=== PATIENT | male | born 1985 | race Caucasian/White ===

== ENCOUNTER 2024-08-26 13:58 | Emergency (ER) | payer OTHER, SELFPAY ==
--- NOTE | ~2024-08-26 | CT_ITS ---
EXAMINATION: CT abdomen pelvis w con DATE: 08/26/2024 16:38 INDICATION: Abdominal pain TECHNIQUE: Computed tomography (CT) of the abdomen and pelvis was performed with 100 mL Omnipaque-350 intravenous contrast. Automated exposure control and iterative reconstruction technique were employe d. The dose-length product was 365.27 mGy-cm. COMPARISON: 06/10/2009 FINDINGS: Mild dependent atelectasis in the bilateral lower lobes. Chronic small fat-containing posterior right diaphragmatic hernia. Heart size normal. No pericardial or pleural effusion. The gallbladder, spleen , pancreas, bilateral adrenal glands and right kidney are normal. 9 mm left renal cyst. 2.5 cm hypode nse lesion in the liver along the ligamentum teres location typical for focal hepatic steatosis. Mode rate to large amount stool scattered throughout the colon which could be seen with constipation. Smal l bowel and appendix are normal. Small fat-containing right inguinal hernia. Bladder is normal. No fr ee intraperitoneal gas or fluid. No pathologically enlarged abdominal or pelvic lymphadenopathy. Mild thoracolumbar levocurvature with mild lower thoracic spondylosis. IMPRESSION: 1. No acute intra-abdominal/pelvic process. 2. Small fat-containing right inguinal hernia. 3. 2.5 cm hypodense hepatic lesion along the ligamentum teres and classic location for focal hepatic steatosis. The configuration is however somewhat masslike and would recommend further evaluation with pre and postcontrast MRI for more definitive determination. Reviewed, dictated and finalized at location A. IMPRESSION: 1. No acute intra-abdominal/pelvic process. 2. Small fat-containing right inguinal hernia. 3. 2.5 cm hypodense hepatic lesion along the ligamentum teres and classic locat ion for focal hepatic steatosis. The configuration is however somewhat masslike and would recommend further evaluation with pre and postcontrast MRI for more definitive determination.
--- OUTSIDE RECORDS SUMMARY | 2024-08-26 14:02 | XMS_ITS | Continuity of Care Document ---
Author Organization [facility] Address [address] [place] [address] [place] [address] Phone Care Team Providers Care Hardware Test Engineer Name Role Phone Rafa Cope MD Unavailable Unavailable Allergies, Adverse Reactions, Alerts Substance Reaction Status Criticality No Known Allergies Active No Inform ation Medications Medication Instructions Dosage Effective Dates (start - stop) Status Comments Xanax 1 mg tablet take 1 tablet by oral route every 4 - 6 hours as needed 1 MG - Active PRN for anxiet y, avoid driving or operate machines Procedures Procedure Date PREV VISIT, NEW, AGE 18-39 Advance Directives Directive Yes / No Effective Date File Name No Information Encounters Encounter Description Practice Location Reason(s) For Visit Diagnoses Date Provider Providers Copied on Encounter [facility], [address] [place], [place], [id number], [place] tel:[phone] [facility] No Information Anatoliy Craig. [address] [facility] [place], [id number], [place]. tel:[phone] Referring Provider: Rafa Cope, [address] [facility] [place], [id number]. tel:[phone] PREV VISIT, NEW, AGE 18-39 [facility], [address] [place], [id number], [place] tel:[phone] [facility] PHysical (chief complaint) Encntr for general adult medical exam w/o abnormal findings Anatoliy Craig. [address], [facility] [place], [place], [id number], [place]. tel:[phone] Referring Provider: Taylor Varg[address], [place], [place], [id number]. tel:[phone] Family History Family Member Type Diagnosis Age At Onset Mother Problem (finding) Alive and well Brother Problem (finding) Alive and well Father Problem (finding) Alive and well Payers Payer name Insurance type Covered libertarian ID Authoriza tion(s) No Information Social History Type Description Quantity Date Captured Comments Alcohol Use Details Unknown Caffeine Use Details Unknown Tobacco Use Status Smoking Status No Information Sex Male Chief Complaint And Reason For Visit No Information Plan Of Treatment Date Type Action Status Goal Special diet education compl eted Goal Tobacco cessation counseling completed Referral Referred To: Kwesi Chaves MD [address] [place], [place], [id number] Ordered: Referrals: Kwesi Chaves MD Evaluate and treat ordered History Of Present Illness Encounter Date Complaint History Of Prese nt Illness PHysical Pt needs annual physical. Pt has chronic anxiety without depression. Pt is taking xanax TID PRN. Pt states that he tried lexapro which did not work. Pt actually got some ativan from urgent care recently and he tried to ask his pervious MD for xanax but was put on lexapro initially which did not work so he went back and did get some xanax and he was told to see a psychiatrist. Pt states that he only takes xanax PRn for anxiety. Pt denies any suicidal or homicidal thought. Pt is not taking the seroquel now since not working. Pt has umbilical hernia for 45 days. Pt c/o pain for 30 days. Pt denies any nausea, vomiting ,constipation, diarrhea. Pt denies any abdominal injury. Pt fell by accident and fell on left elbow and he told me he dislocated his left shoulder int he process. Pt was able to relocate his left shoulder into socket. Pt c/o mild pain with resting which gets worse with movement. Pt denies any instability of left shoulder. Pt denies any radiation of pain down to left arm. Pt denies any tingling pt denies any left hand weakness. Instructions Date Instruction Additional Infor mation Special diet education Related t o Body mass index (BMI) 29.0-29.9, adult Assessments Type Assessment Date No Information
--- OUTSIDE RECORDS SUMMARY | 2024-08-26 14:02 | XMS_ITS | CONTINUITY OF CARE DOCUMENT ---
Author Name [facility] Address Unknown Organization [facility] Address [address] [place] [address] Phone [phone] Care Team Providers Care Digital Solution Architect Name Role Phone Jake Jimenes MD Unavailable DENNY OLIVER MD Unavailable [phone] DENNY OLIVER MD Unavailable PROBLEMS Condition Status Date Provider Notes Premature ventricular contractions active Dary Jimenes MD Palpitations active Jake Jimenes MD Cardiology examination active Jake Jimenes MD Preoperative cardiovascular examination active Jake Jimenes MD Chest pain active Jake Jimenes MD Near syncope active Jake Jimenes MD Shortness of breath active Jake Jimenes MD Anxiety active Jake Jimenes MD (History of) Tobacco abuse active Jake Jimenes MD G E R D active Jake Jimenes MD ENCOUNTERS Date Type Provider Location Encounter Diag nosis - In-person encounter Office Visit Ana Collins MD [facility] - In-person encounter Office Visit Jake Jimenes MD [facility] - In-person encounter Office Visit Jake Jimenes MD [facility] Cardiology examinationPreoperative cardiovascular examinationChest painNear syncopeShortness of breathAnxietyTobacco abuseG E R D VITAL SIGNS Date Observation Value Provider Body Mass Index (Ratio) 31.79 kg/m2 Herber Collins MD blood pressure, cuff size regular Ke rri Gruenenfelder blood pressure, diastolic 80 mm[Hg] Ke rri Gruenenfelder blood pressure, systolic 122 mm[Hg] Codi ri Rema oxygen saturation, oximetry 95 % Lorena Rema respiratory rate E&M 12 /min [facility]na [facility] pulse rate 83 /min Lorena Chad er weight E&M 197 [lb_av] Lorena Claye lder height E&M 66 [in_i] Lorena Regnfe er Body Mass Index (Ratio) 33.08 kg/m2 Hong Jimenes MD pulse rate 90 /min Fady blood pressure, cuff size regular Ja et blood pressure, diastolic 87 mm[Hg] Geoff rret blood pressure, systolic 111 mm[Hg] Jar ret respiratory rate E&M 16 /min oxygen saturation, oximetry 96 % weight E&M 205 [lb_av] Fady y height E&M 66 [in_i] Fady y Body Mass Index (Ratio) 32.92 kg/m2 [address] weight E&M 204 [lb_av] Yoly Rushin g height E&M 66 [in_i] Yoly Rushin g blood pressure, diastolic 85 mm[Hg] Seema nkLogic blood pressure, systolic 122 mm[Hg] Myrna kLogic blood pressure, cuff size regular [facility] blood pressure, diastolic 85 mm[Hg] Geoff [facility] blood pressure, systolic 122 mm[Hg] [facility] pulse rate 64 /min [facility] y height E&M 66 [in_i] Fady y oxygen saturation, oximetry 97 % Fady respiratory rate E&M 16 /min Fady weight E&M 204 [lb_av] Fady ALLERGIES No Known Drug Allergies REASON FOR REFERRAL Date Service frequent pvc's on mo nitor with a lot of symptoms [Description: Dr. Collins] HISTORY OF MEDICATION USE Medication Status Instructions Dates Provider Indications Com ments losartan 50 mg tablet active TAKE 1 TABLET BY MOUTH EVERY DAY Flaco Doss magnesium oxide 400 mg magnesium tablet active Take 1 tablet by mouth twice a day Flaco Doss sulfamethoxazole -trimethoprim 800-160 mg tablet active Conner Starks NP oxycodone-acetam inophen 5-325 mg tablet active Conner Starks NP omeprazole 20 mg capsule,delayed release(DR/EC) active TAKE 1 CAPSULE BY MOUTH EVERY DAY NEEDED varenicline 0.5 mg (11)- 1 mg (42) tablets,dose pack active FOLLOW PACKAGE DIRECTIONS SOCIAL HISTORY Date Observation Value Provider personal history of marijuana use no Flaco Doss drug use no Flaco Doss alcohol use no Flaco Doss cigarette use yes Flaco Doss smoking status Former smoker Flaco Madrigal i personal history of marijuana use no Conner Starks NP drug use no Conner Starks NP alcohol use no Conner Starks [employer] cigarette use yes Conner Starks [employer] smoking status Former smoker Conner alas [employer] cigarette use yes Fady Sinclair ay smoking status Current some day smoker Geoff calle INSURANCE PROVIDERS Payer name Policy type / Coverage type [employer] party ID [employer] MEDICAID (2) Medicaid [id number] ADVANCE DIRECTIVES Name Date DISCUSSED - NO DECISION MADE TREATMENT PLAN Date Name Performer Electrophysiology:non ischemic, likely due to PVCs Ana Collins MD Electrophysiology:Cu rrently sxs are better, will have him start Mag 400 mg BID and Losartan 50 mg and see if his sxs resolve, will repeat holter in 6 mo and reassess. If PVC burden is not improved or worse will proceed with EP study. O rders: H olter Monitor 48 hr (CPT-48440) 9 9204 MOD 45-59 min ([id number]) Ana Collins MD Electrophysiology:st able currently, attributable to his PVCs H is updated medication list for this problem includes: Losartan 50 Mg Tablet (Losartan) ..... Take 1 tablet by mouth every day Ana Collins MD Electrophysiology:Cu rrently sxs are better, will have him start Mag 400 mg BID and Losartan 50 mg and see if his sxs resolve, will repeat holter in 6 mo and reassess. If PVC burden is not improved or worse will proceed with EP study. O rders: H olter Monitor 48 hr (CPT-98419) 9 9204 MOD 45-59 min ([id number]) Flaco Doss Electrophysiology: C omplete cessation encouraged. Flaco Doss Electrophysiology Flaco Doss Electrophysiology Flaco Doss Electrophysiology:non ischemic, likely due to PVCs Flaco Doss Electrophysiology:st able currently, attributable to his PVCs Flaco Doss Telehealth:Routine stress normal Jake Jimenes MD Telehealth:denies Jake Hollins Telehealth:5% VE noted on monito r Jake Jimenes MD Telehealth:arrange for EP evalua tion. Jake Jimenes MD Cardiology: A typical chest pain. Routine stress 08/2023 was negative for ischemia Conner Starks NP Cardiology: c ontinues to have shortness of breath. Routine stress test normal. Conner Starks NP Cardiology: 2 weeks monitor results pending. Conner Starks NP Cardiology: C omplete cessation encouraged. Conner Starks NP Cardiology: H is updated medication list for this problem includes: Omeprazole 20 Mg Capsule,delayed Release(/ec) (Omeprazole) ..... Take 1 capsule by mouth every day as needed Jake Jimenes MD Cardiology:The Patie nt was reencouraged to stop smoking. P elva is on chantix for tobacco cessation Jake Jimenes MD Cardiology:check echo Jake kimble MD Cardiology:Atypical, patient states that this has been occurring for last 1.5 years, will check a routine stress test, ECG unremarkable. Jake Jimenes MD Cardiology:Check 2 week monitor Jake Jimenes MD Date Name Dr. Collins Holter Monitor 48 hr Complete Echo Stress Routine Monitor - Telemetry (Mobile Cardiac) HISTORY OF PROCEDURES Procedure Date Procedure Name Provider Procedure Notes S tatus EKG Ana Collins MD comp leted EKG Jake Jimenes MD completed
--- OUTSIDE RECORDS SUMMARY | 2024-08-26 14:02 | XMS_ITS | Clinical Summary ---
Author Organization [facility] [employer] Address [address] [place] [address] Care Team Providers Care English Adjunct Faculty Name Role Phone Unavailable Primary Care Provider Unavailabl e Source Comments [facility] [employer],non-owned Affiliates and Associated Physician Practices is amultiple site organization consisting of ambulatory clinics and hospital sitesin [place], [place], [place] and [place]. This disclosure is being madepursuant to the Care Everywhere program and may not contain all information available regarding this patient. Last updated 18.[facility] [employer] Allergies Active Allergy Reactions Criticality Noted Date Comments Hydrocodone-Acetaminophen Headache 03/14/2015 Medications * Be aware that medications may not be up to date on this document. Alwaysverify current medications with the patient. ibuprofen (MOTRIN) 800 MG tablet Take 1 Tab by mouth every 6 hours as needed for Pain. 15 Tab 0 3 Active Additional Information Patient not taking.Reported on 05/20/2019 naproxen (NAPROSYN) 500 MG tablet Take 500 mg by mouth 2 times daily Active cyclobenzaprine (FLEXERIL) 10 MG tablet Take 10 mg by mouth 3 times daily as needed for Muscle Spasms Active meloxicam (MOBIC) 15 MG tablet Take 15 mg by mouth once daily Active Social History Tobacco Use Types Packs/Day Years Used Date Smoking Tobacco: Every Day Cigarettes Smokeless Tobacco: Never Tobacco Cessation:Counseling Given: Yes Alcohol Use Standard Drinks/Week Comments No 0 (1 standard drink = 0.6 oz pur e alcohol) Sex and Gender Information Value Date Recorded Sex Assigned at Male 08/17/2021 6:25 PM CDT Legal Sex Male 10:06 AM CHUCK BONER Gender Identity Male 08/17/2021 6:25 PM CDT Sexual Orientation Straight 08/17/2021 6: 25 PM CDT Last Filed Vital Signs Vital Sign Reading Time Taken Comments Blood Pressure 123/77 05/20/2019 2:09 AM CHUCK BONER Pulse 121 05/20/2019 2:09 AM CHUCK BONER Temperature 37.3 C (99.1 F) 05/20/2019 2:09 AM CHUCK BONER Respiratory Rate 18 05/20/2019 2:09 AM CHUCK BONER Oxygen Saturation 100% 05/20/2019 2:09 AM CHUCK BONER Inhaled Oxygen Concentration - - Weight 79.4 kg (175 lb) 05/20/2019 2:09 AM CHUCK BONER Height 167.6 cm (5' 6 ) 05/20/2019 2:09 AM CHUCK BONER Body Mass Index 28.25 05/20/2019 2:09 AM CHUCK BONER Plan of Treatment Health Maintenance Due Date Last Done Comments LIPID TESTING 1984 HIV SCREENING 1999 HEPATITIS C SCREENING 05/24/2002 DTAP/TDAP/TD VACCINES (1 - Tdap) 2003 HEPATITIS B VACCINE (1 of 3 - 19+ 3-dose series) 2003 COVID-19 VACCINE (1 - 2023-2 5 season) 2024 DEPRESSION SCREENING 05/04/2024 INFLUENZA VACCINE (Season Ended) 2025 ZOSTER VACCINE (1 of 2) 2034 HIB VACCINE Aged Out No longer eligi ble based on patient's age to complete this topic HPV VACCINE Aged Out No longer eligi ble based on patient's age to complete this topic MENINGOCOCCAL (Group B) VACC INE SHARED DECISION-MAKING Aged Out No longer eligibl e based on patient's age to complete this topic MENINGOCOCCAL GROUPS A/C/Y/W VACCINE Aged Out No longer eligible b ased on patient's age to complete this topic PNEUMOCOCCAL VACCINE Aged Out No long er eligible based on patient's age to complete this topic Insurance MEDICAID [facility]
[2024-08-26 14:23] VITALS: BP 117/79; PULSE 98; RESP 16; TEMP 36.1; O2SAT 100
--- NOTE | 2024-08-26 14:24 | ECG_ITS ---
Test Date: 2024-08-26 16:01:08 Measurements Intervals Ramona Rate: 93 P: 50 RI: 141 QRS: 62 QRSD: 87 T: 39 QT: 330 QTc: 411 Interpretive Statements SINUS RHYTHM NORMAL ECG No previous ECG available for comparison Electronically Signed On 08-26-2024 16:16:39 CDT by Humberto Williamson D.O.
--- NOTE | 2024-08-26 14:25 | ED.ABDPAIN ---
HPI - Abdominal Pain General Chief Complaint: Abdominal Pain <Che Garcia APRN - Last Filed: 08/26/24 14:26> Stated Complaint: abd pain <Che Garcia APRN - Last Filed: 08/26/24 14:26> Time Seen by Provider: 08/26/24 14:15 <Che Garcia APRN - Last Filed: 08/26/24 14:26> Focused HPI: Patient is a 47-year-old male who presents to the ER with abdominal pain. He reports he believes ?my appendix is swollen. Patient endorses nausea and diarrhea. He reports his symptoms started approximately 2 days ago and are constant. Patient denies any other medical history relevant to this ER visit. GENERAL: Well-appearing, well-nourished, and in no acute distress. HEAD: Normocephalic, atraumatic. CHEST: Clear to auscultation. ?No respiratory distress. HEART: Regular rate and rhythm.? NEURO: ?Alert and oriented x3. Patient screened in triage and initial orders placed.? ?Additional care and disposition to be based upon?diagnostic testing and treatment. <Che Garcia APRN - Last Filed: 08/26/24 14:26> History of Present Illness HPI narrative: Agree with the HPI above. Patient has had previous inguinal hernia repairs but no history of appendix issues. Was otherwise in his normal state of health. <Anthony Grove MD - Last Filed: 08/26/24 17:59> Related Data Allergies/Adverse Reactions: Allergies Allergy/AdvReac Type Severity Reaction Status Date / Time No Known Allergies Allergy Verified 04/17/18 05:00 <Che Garcia APRN - Last Filed: 08/26/24 14:26> Review of Systems Review of Systems: As reviewed above in HPI <Anthony Grove MD - Last Filed: 08/26/24 17:59> PMFSH Family History Family History: Family History Mother Patient's mother is in good health Father Patient's father is in good health Sibling Patient's brother is in good health <Che L. Jose, LINING FELLER BLINDSTITCH - Last Filed: 08/26/24 14:26> Social History Social History: Social History Smoking status: Current every day smoker Alcohol intake: never <Che Garcia, LINING FELLER BLINDSTITCH - Last Filed: 08/26/24 14:26> Exam Narrative: GENERAL: [Well-appearing, well-nourished, and in no acute distress.] HEAD: [Normocephalic, atraumatic.] EYES: [PERRLA and EOMI.] ENT: Nares clear, no rhinorrhea or epistaxis. Mucous membranes moist. NECK: Supple. CHEST: [Clear to auscultation. No respiratory distress.] HEART: [Regular rate and rhythm]. No murmur heard. [Normal peripheral pulses.] ABDOMEN: [Soft, nondistended], [nontender], [No rigidity or guarding] EXTREMITIES: Normal range of motion. [No edema.] SKIN: Warm, dry, no rash. NEURO: [No focal deficits]. Alert and oriented [x3.] PSYCH: [Normal mood and affect.] <Anthony Grove MD - Last Filed: 08/26/24 17:59> Course Vital Signs Vital signs: Vital Signs Temperature 36.1 C L 08/26/24 14:23 Pulse Rate 98 08/26/24 14:23 Respiratory Rate 16 08/26/24 14:23 Blood Pressure 117/79 08/26/24 14:23 Pulse Oximetry 100 08/26/24 14:23 Oxygen Delivery Room Air 08/26/24 14:23 Temperature 36.9 C 08/26/24 16:07 Pulse Rate 82 08/26/24 17:47 Respiratory Rate 18 08/26/24 17:47 Blood Pressure 114/68 08/26/24 17:47 Pulse Oximetry 98 08/26/24 17:47 Oxygen Delivery Room Air 08/26/24 14:23 <Che Garcia, LINING FELLER BLINDSTITCH - Last Filed: 08/26/24 14:26> Vital Signs Temperature 36.1 C L 08/26/24 14:23 Pulse Rate 98 08/26/24 14:23 Respiratory Rate 16 08/26/24 14:23 Blood Pressure 117/79 08/26/24 14:23 Pulse Oximetry 100 08/26/24 14:23 Oxygen Delivery Room Air 08/26/24 14:23 Temperature 36.9 C 08/26/24 16:07 Pulse Rate 82 08/26/24 17:47 Respiratory Rate 18 08/26/24 17:47 Blood Pressure 114/68 08/26/24 17:47 Pulse Oximetry 98 08/26/24 17:47 Oxygen Delivery Room Air 08/26/24 14:23 <Anthony Grove MD - Last Filed: 08/26/24 17:59> MDM - Abdominal Pain MDM Narrative Medical decision making narrative: 39-year-old male with no significant pertinent past medical history presenting with right lower quadrant pain for last 4-5 days. Endorses feeling gassy and nauseous. No vomiting. Multiple episodes of diarrhea. No history of appendix issues in the past but states he has had hernia issues previously. Has a soft nontender nondistended abdomen. Normal vital signs with any fever, tachycardia. No blood pressure concerns. Suspicion presently is for gastroenteritis, diarrheal illness, possible appendicitis, diverticulitis, gastritis low suspicion Crohn's disease. Possibility of a hernia. CT scan with contrast ordered, laboratory studies to evaluate for CBC, CMP, lipase. Patient did not require any pain medications at this time. Workup shows no leukocytosis or anemia. Normal platelet count. Normal electrolytes, normal renal and hepatic function panel. Negative troponin. Mildly elevated lipase. Urinalysis without signs of infection. CT scan shows no acute abnormalities. There is a small fat containing right inguinal hernia where his pain is. Instantly found hepatic lesion likely hepatic steatosis per radiology's interpretation. Patient was informed about this and will need to follow-up with his primary care provider for more imaging and evaluations. He is safe and stable for discharge home at this time given that he has no present symptoms and normal CT scan otherwise. <Anthony Grove MD - Last Filed: 08/26/24 17:59> Medical Records Attestation: I reviewed the patient's medical records. <Anthony Grove MD - Last Filed: 08/26/24 17:59> Lab Data Attestation: I reviewed the patient's lab results. <Anthony Grove MD - Last Filed: 08/26/24 17:59> Result diagrams: 08/26/24 15:55 08/26/24 15:55 <Che Garcia APRN - Last Filed: 08/26/24 14:26> Labs: Lab Results 08/26/24 08/26/24 Range/Units 15:55 17:38 WBC 9.2 (4.5-10.0) K/mm3 RBC 4.55 L (4.6-6.20) M/mm3 Hgb 13.8 L (14.0-18.0) g/dL Hct 41.5 L (42.0-52.0) % MCV 91.2 (80-100) fl MCH 30.3 (26-34) pg MCHC 33.3 (32-36) g/dl RDW 13.0 (11.5-14.5) % Plt Count 233 (150-375) k/mm3 MPV 8.5 (7.4-10.4) fl Immature Gran % (Auto) 0.4 (0-0.5) % Neut % (Auto) 67.6 (45.5-73.1) % Lymph % (Auto) 22.9 (18.3-44.2) % [place] % (Auto) 6.0 (2.6-8.5) % Eos % (Auto) 2.7 (0-4.4) % Baso % (Auto) 0.4 (0.2-1.2) % Lymph # (Auto) 2.11 (0.9-3.2) K/mm3 [place] # (Auto) 0.6 (0.1-0.6) K/mm3 Eos # (Auto) 0.3 (0-0.3) K/mm3 Baso # (Auto) 0.0 (0.0-0.1) K/mm3 Abs Immat Gran (auto) 0.04 H (0.00-0.031) K/mm3 Absolute Neuts (auto) 6.2 (1.3-6.7) K/mm3 Absolute Nucleated RBC 0.000 (0.0-0.012) K/mm3 Nucleated RBC % 0.0 (0.0-0.2) % Sodium 139 (137-145) mmol/L Potassium 4.0 (3.4-5.0) mmol/L Chloride 106 (98-107) mmol/L Carbon Dioxide 25 (22-30) mmol/L Anion Gap 8 (4-12) mmol/L BUN 19 (9-20) mg/dL Creatinine 0.77 (0.7-1.3) mg/dL Estim Creat Clear Calc 100 ml/min Estimated GFR > 60 (59 - ) Glucose 98 (65-110) mg/dL Calcium 9.1 (8.4-10.2) mg/dL Total Bilirubin 0.4 (0.2-1.3) mg/dL AST 39 (17-59) U/L ALT 66 H (6-50) U/L Alkaline Phosphatase 67 (38-126) U/L Troponin I < 0.012 (0.000-0.034) ng/mL Total Protein 7.0 (6.3-8.2) g/dL Albumin 4.3 (3.5-5.1) g/dL Lipase 585 H (23-300) U/L Urine Color Pending Urine Appearance Pending Urine pH Pending Ur Specific [place] Pending Urine Protein Pending Urine Glucose (UA) Pending Urine Ketones Pending Ur Blood (Man) Pending Urine Nitrate Pending Urine Bilirubin Pending Urine Urobilinogen Pending Leukocyte Esterase Rfl Pending <Che Garcia, LINING FELLER BLINDSTITCH - Last Filed: 08/26/24 14:26> Lab Results 08/26/24 08/26/24 Range/Units 15:55 17:38 WBC 9.2 (4.5-10.0) K/mm3 RBC 4.55 L (4.6-6.20) M/mm3 Hgb 13.8 L (14.0-18.0) g/dL Hct 41.5 L (42.0-52.0) % MCV 91.2 (80-100) fl MCH 30.3 (26-34) pg MCHC 33.3 (32-36) g/dl RDW 13.0 (11.5-14.5) % Plt Count 233 (150-375) k/mm3 MPV 8.5 (7.4-10.4) fl Immature Gran % (Auto) 0.4 (0-0.5) % Neut % (Auto) 67.6 (45.5-73.1) % Lymph % (Auto) 22.9 (18.3-44.2) % [place] % (Auto) 6.0 (2.6-8.5) % Eos % (Auto) 2.7 (0-4.4) % Baso % (Auto) 0.4 (0.2-1.2) % Lymph # (Auto) 2.11 (0.9-3.2) K/mm3 [place] # (Auto) 0.6 (0.1-0.6) K/mm3 Eos # (Auto) 0.3 (0-0.3) K/mm3 Baso # (Auto) 0.0 (0.0-0.1) K/mm3 Abs Immat Gran (auto) 0.04 H (0.00-0.031) K/mm3 Absolute Neuts (auto) 6.2 (1.3-6.7) K/mm3 Absolute Nucleated RBC 0.000 (0.0-0.012) K/mm3 Nucleated RBC % 0.0 (0.0-0.2) % Sodium 139 (137-145) mmol/L Potassium 4.0 (3.4-5.0) mmol/L Chloride 106 (98-107) mmol/L Carbon Dioxide 25 (22-30) mmol/L Anion Gap 8 (4-12) mmol/L BUN 19 (9-20) mg/dL Creatinine 0.77 (0.7-1.3) mg/dL Estim Creat Clear Calc 100 ml/min Estimated GFR > 60 (59 - ) Glucose 98 (65-110) mg/dL Calcium 9.1 (8.4-10.2) mg/dL Total Bilirubin 0.4 (0.2-1.3) mg/dL AST 39 (17-59) U/L ALT 66 H (6-50) U/L Alkaline Phosphatase 67 (38-126) U/L Troponin I < 0.012 (0.000-0.034) ng/mL Total Protein 7.0 (6.3-8.2) g/dL Albumin 4.3 (3.5-5.1) g/dL Lipase 585 H (23-300) U/L Urine Color Pending Urine Appearance Pending Urine pH Pending Ur Specific [place] Pending Urine Protein Pending Urine Glucose (UA) Pending Urine Ketones Pending Ur Blood (Man) Pending Urine Nitrate Pending Urine Bilirubin Pending Urine Urobilinogen Pending Leukocyte Esterase Rfl Pending <Anthony Grove MD - Last Filed: 08/26/24 17:59> Imaging Data Attestation: I personally reviewed and interpreted this imaging study as follows: <Anthony Grove MD - Last Filed: 08/26/24 17:59> My impression: Impressions Abdomen/Pelvis CT 08/26/24 16:43 IMPRESSION: 1. No acute intra-abdominal/pelvic process. 2. Small fat-containing right inguinal hernia. 3. 2.5 cm hypodense hepatic lesion along the ligamentum teres and classic location for focal hepatic steatosis. The configuration is however somewhat masslike and would recommend further evaluation with pre and postcontrast MRI for more definitive determination. <Anthony Grove MD - Last Filed: 08/26/24 17:59> Radiologist's impression: ITS Impressions Abdomen/Pelvis CT 08/26/24 16:43 IMPRESSION: 1. No acute intra-abdominal/pelvic process. 2. Small fat-containing right inguinal hernia. 3. 2.5 cm hypodense hepatic lesion along the ligamentum teres and classic location for focal hepatic steatosis. The configuration is however somewhat masslike and would recommend further evaluation with pre and postcontrast MRI for more definitive determination. <Che Garcia APRN - Last Filed: 08/26/24 14:26> ITS Impressions Abdomen/Pelvis CT 08/26/24 16:43 IMPRESSION: 1. No acute intra-abdominal/pelvic process. 2. Small fat-containing right inguinal hernia. 3. 2.5 cm hypodense hepatic lesion along the ligamentum teres and classic location for focal hepatic steatosis. The configuration is however somewhat masslike and would recommend further evaluation with pre and postcontrast MRI for more definitive determination. <Anthony Grove MD - Last Filed: 08/26/24 17:59> Discharge Plan Discharge Clinical Impression: Inguinal hernia of right side without obstruction or gangrene, Abnormal CT of liver, Abdominal pain, RLQ (right lower quadrant) <Che Garcia APRN - Last Filed: 08/26/24 14:26> Patient Disposition: Home <Che Garcia APRN - Last Filed: 08/26/24 14:26> Condition: Stable <Che Garcia APRN - Last Filed: 08/26/24 14:26> Instructions: Antibiotic Form, Inguinal Hernia (ED), Abdominal Pain (ED) <Che Garcia APRN - Last Filed: 08/26/24 14:26> Additional Instructions: No signs of appendicitis. Your CT scan shows a small fat containing right-sided inguinal hernia which is likely the source of your pain but there is no signs of obstructions or ischemia. Will refer you to a general surgeon to evaluate you for elective repair. Your liver has a CT finding of potential fatty liver and this will need to be evaluated further with additional imaging by her primary care provider but is not causing symptoms at this time. Return with any new or worsening concerns at any time. <Che Garcia APRN - Last Filed: 08/26/24 14:26> Patient Language: Citizen Of [place] <Che Garcia APRN - Last Filed: 08/26/24 14:26> Follow-up/Referrals: Harriet Stevens MD [Physician] - 1 Week (Inguinal hernia) PHYSICIAN,HYDRAULIC JACK OPERATOR [Non-Staff] - <Che Garcia APRN - Last Filed: 08/26/24 14:26> Time of Disposition: 17:58 <Che Garcia APRN - Last Filed: 08/26/24 14:26> 17:58 <Anthony Grove MD - Last Filed: 08/26/24 17:59>
--- OUTSIDE RECORDS SUMMARY | 2024-08-26 14:51 | XMS_ITS | Continuity of Care Document ---
Author Organization [facility] Address [address] [place] [address] [place] [address] Phone Care Team Providers Care Small Parts Shaper Operator Name Role Phone Rafa Cope MD Unavailable [...] Diagnoses Date Provider Providers Copied on Encounter [facility], [address] [place], [place], [id number], [place] tel:[phone] [facility] No Information Anatoliy Craig. [address] [facility] [place], [place], [id number], [place]. tel:[phone] Referring Provider: Rafa Cope, [address] [facility] [place], [place], [id number]. tel:[phone] PREV VISIT, NEW, AGE 18-39 [facility], [address] [place], [place], [id number], [place] tel:[phone] [facility] PHysical (chief complaint) Encntr for general adult medical exam w/o abnormal findings Anatoliy Craig. [address], [facility] [place], [place], [id number], [place]. tel:[phone] Referring Provider: Taylor Vargas [address], [place], [place], [id number]. tel:[phone] Family History Family Member Type Diagnosis Age At Onset Mother Problem (finding) Alive and well Brother Problem (finding) Alive and well Father Problem (finding) Alive and well Payers Payer name Insurance type Covered democrat ID Authoriza tion(s) No Information Social History [...] MD [address] [place], [place], [id number] Ordered: Referrals: Kwesi Chaves MD Evaluate and [...]
--- OUTSIDE RECORDS SUMMARY | 2024-08-26 14:51 | XMS_ITS | CONTINUITY OF CARE DOCUMENT ---
Author Name [facility] Address Unknown Organization [facility] Address [address] [place] [address] Phone [phone] Care Team Providers Care Price Accuracy Supervisor Name Role Phone Jake Jimenes MD Unavailable DENNY OLIVER MD Unavailable DENNY OLIVER MD Unavailable PROBLEMS Condition Status Date Provider Notes Premature ventricular contractions active Dayr Jimenes MD Palpitations active Jake Jimenes MD Cardiology examination active Jake Jimenes MD Shortness of breath active Jake Jimenes MD G E R D active Jake Jimenes MD Tobacco abuse active Jake Jimenes MD Anxiety active Jake Jimenes MD (History of) Near syncope active Jake Jimenes MD Chest pain active Jake Jimenes MD Preoperative cardiovascular examination active Jake Jimenes MD ENCOUNTERS Date Type Provider Location Encounter Diag nosis - In-person encounter Office Visit Ana Collins MD [place] [facility] - In-person encounter Office Visit Jake Jimenes MD [place] [facility] - In-person encounter Office Visit Jake Jimenes MD [place] [facility] Cardiology examinationPreoperative cardiovascular examinationChest painNear syncopeShortness [...] respiratory rate E&M 12 /min [facility] pulse [facility] 83 /min Lorena Chad er [...] Myrna kLogic blood pressure, cuff size regular [facility] blood pressure, diastolic 85 mm[Hg] Geoff [facility] blood pressure, systolic 122 mm[Hg] [facility] pulse rate 64 /min [facility] y height E&M 66 [in_i] Fady y [...] Starks NP alcohol use no Conner Starks WATER FILTER CLEANER cigarette use yes Conner Starks WATER FILTER CLEANER smoking status Former smoker Conner alas WATER FILTER CLEANER cigarette use yes Fady Sinclair ay smoking status Current some day smoker Geoff calle INSURANCE PROVIDERS Payer name Policy type / Coverage type Greg red libertarian [place] MEDICAID (2) Medicaid [id number] ADVANCE DIRECTIVES Name Date DISCUSSED - NO [...] O rders: H olter Monitor 48 hr (CPT-91676) 9 9204 MOD 45-59 min (CPT-10857) Ana Collins MD Electrophysiology:st able currently, attributable [...] O rders: H olter Monitor 48 hr (CPT-95558) 9 9204 MOD 45-59 min (CPT-82158) Flaco Doss Electrophysiology: C omplete cessation encouraged. [...]
--- OUTSIDE RECORDS SUMMARY | 2024-08-26 14:51 | XMS_ITS | Clinical Summary ---
Author Organization [facility] Address [address] [place] [address] Care Team Providers Care Catalyst Recovery Operator Name Role Phone Unavailable Primary Care Provider Unavailabl e Source Comments [facility],non-owned Affiliates and Associated Physician Practices is amultiple site organization consisting of ambulatory clinics and hospital sitesin [place], [place], [place] and [place]. This disclosure is being madepursuant to the Care Everywhere program and may not contain all information available regarding this patient. Last updated 18.[facility] Allergies Active Allergy Reactions Criticality Noted Date [...] PM CDT Legal Sex Male 10:06 AM MACHINE FEEDER FLOORPERSON Gender Identity Male 08/17/2021 6:25 PM CDT Sexual Orientation Straight 08/17/2021 6: 25 PM CDT Last Filed Vital Signs Vital Sign Reading Time Taken Comments Blood Pressure 123/77 05/20/2019 2:09 AM MACHINE FEEDER FLOORPERSON Pulse 121 05/20/2019 2:09 AM MACHINE FEEDER FLOORPERSON Temperature 37.3 C (99.1 F) 05/20/2019 2:09 AM MACHINE FEEDER FLOORPERSON Respiratory Rate 18 05/20/2019 2:09 AM MACHINE FEEDER FLOORPERSON Oxygen Saturation 100% 05/20/2019 2:09 AM MACHINE FEEDER FLOORPERSON Inhaled Oxygen Concentration - - Weight 79.4 kg (175 lb) 05/20/2019 2:09 AM MACHINE FEEDER FLOORPERSON Height 167.6 cm (5' 6 ) 05/20/2019 2:09 AM MACHINE FEEDER FLOORPERSON Body Mass Index 28.25 05/20/2019 2:09 AM MACHINE FEEDER FLOORPERSON Plan of Treatment Health Maintenance Due Date [...] age to complete this topic Insurance MEDICAID [facility]
[2024-08-26 16:00] LABS: Basophils Percent Auto 0.4 % (0.2-1.2); Eosinophils Absolute Auto 0.3 K/mm3 (0-0.3); Eosinophils Percent Auto 2.7 % (0-4.4); Hematocrit 41.5 % (42.0-52.0); Hemoglobin 13.8 g/dL (14.0-18.0); Immature Granulocyte Absolute 0.04 K/mm3 (0.00-0.031); Immature Granulocyte Percent A 0.4 % (0-0.5); Lymphocytes Absolute Auto 2.11 K/mm3 (0.9-3.2); Lymphocytes Percent Auto 22.9 % (18.3-44.2); Mean Corpuscular HGB Conc 33.3 g/dl (32-36); Mean Corpuscular Hemoglobin 30.3 pg (26-34); Mean Corpuscular Volume 91.2 fl (80-100); Mean Platelet Volume 8.5 fl (7.4-10.4); Monocytes Absolute Auto 0.6 K/mm3 (0.1-0.6); Neutrophils Absolute Auto 6.2 K/mm3 (1.3-6.7); Neutrophils Percent Auto 67.6 % (45.5-73.1); Platelet Count Result 233 k/mm3 (150-375); Red Blood Count 4.55 M/mm3 (4.6-6.20); White Blood Count 9.2 K/mm3 (4.5-10.0)
[2024-08-26 16:07] VITALS: BP 114/79; PULSE 92; RESP 18; TEMP 36.9; O2SAT 98
--- NOTE | 2024-08-26 16:08 | PC.NURSE ---
39yo M to ER c/o RLQ abd pain x4-5 days with radiation to low back. +diarrhea and nausea. Denies fevers. Denies GI sx hx. Pt A&Ox4, speech clear. RR even and unlabored. Skin WDL. PIV and blood work obtained, sent to lab. EKG performed. Pt placed on continuous nibp and pulse ox monitor, VS as charted. Pt aware of NPO status. Pt aware of plan of care. Call light in reach.
--- NOTE | 2024-08-26 16:10 | PC.NURSE ---
Pt unable to provide urine sample at this time.
[2024-08-26 16:11] LABS: Alanine Aminotransferase 66 U/L (6-50); Albumin Level 4.3 g/dL (3.5-5.1); Alkaline Phosphatase 67 U/L (38-126); Anion Gap 8 mmol/L (4-12); Aspartate Amino Transferase 39 U/L (17-59); Bilirubin,Total 0.4 mg/dL (0.2-1.3); Blood Urea Nitrogen 19 mg/dL (9-20); Calcium 9.1 mg/dL (8.4-10.2); Carbon Dioxide 25 mmol/L (22-30); Chloride 106 mmol/L (98-107); Estimated CRCL calculation 100 ml/min; Estimated Glomerular Filt Rate > 60; Glucose 98 mg/dL (65-110); Lipase 585 U/L (23-300); Sodium 139 mmol/L (137-145)
[2024-08-26 16:22] LABS: Troponin I < 0.012 ng/mL (0.000-0.034)
--- NOTE | 2024-08-26 17:31 | PC.NURSE ---
Patient ambulatory w steady gait to BR to provide urine sample.
[2024-08-26 17:47] VITALS: BP 114/68; PULSE 82; RESP 18; O2SAT 98
[2024-08-26 17:48] LABS: Add Urine Microscopic? NO; Appearance Urine Clear (Clear); Bilirubin Urine Negative (Negative); Blood Urine Negative (Negative); Color Urine Yellow (Yellow); Glucose Urine UA Negative (Negative); Ketones Urine Negative (Negative); Leukocyte Esterase Ur Negative LEU/UL (Negative); Nitrate Urine Negative (Negative); Protein Urine Negative (Negative); Specific Grav Ur > 1.045 (1.001-1.035); Urobilinogen Urine 0.2 mg/dL (<2.0)
== END 2024-08-26 18:17 | disposition home or self-care (01) ==
PROVIDERS: Registered Nurse; Emergency Provider Student in an Organized Health Care Education/Training Program
DX: K40.90 Unilateral inguinal hernia, without obstruction or gangrene, not specified as recurrent (principal)
CPT/HCPCS: 36415; 74177; 80053; 81003; 83690; 84484; 85025; 93005; 99284; Q9967

== ENCOUNTER 2024-10-24 01:01 | Day surgery (SDC) | payer BC, SELFPAY ==
--- NOTE | 2024-10-24 07:49 | SUR.PREOP ---
several attempts made to reach patient with no answer, arrived day of surgery and orinally stated to preop nurse ate a cracker at about 6am conversation with Dr Manley and states case canceled for today, when told case was canceled became angry and refused to sign discharge paper
== END 2024-10-24 07:45 | disposition home or self-care (01) ==
PROVIDERS: Visit Provider Surgery
PROC: 8E0Y4CZ Robotic Assisted Procedure of Lower Extremity, Percutaneous Endoscopic Approach (ICD-10-PCS; CPT 49650; principal; 2024-10-24 09:00)
DX: K40.90 Unilateral inguinal hernia, without obstruction or gangrene, not specified as recurrent (principal); Z53.09 Procedure and treatment not carried out because of other contraindication
CPT/HCPCS: 99211; G0463

== ENCOUNTER 2024-12-19 01:42 | Day surgery (SDC) | payer BC, SELFPAY ==
[2024-10-24 11:25] VITALS: BMI 24.5
--- NOTE | 2024-10-24 11:27 | PC.NURSE ---
Report to the Outpatient Waiting Room, entrance under the green pavilion located off [facility], at time _0600_ on date _[id number]_. Planned Procedure Time: _0730_.? Time changes happen often and if your time is changed the preop area will call you the afternoon before. - You and your visitor will be asked to self-screen and do not enter if you have any COVID symptoms. Please call surgeon if you need to reschedule. - A mask is optional within the hospital at this time. Patients may have clear liquids (water, carbonated beverages, clear teas, apple juice) until 3 hours prior to surgery with a maximum of 20 ounces. - No food from midnight until time of surgery and no smoking, or chewing tobacco (or any form of nicotine). No chewing gum, candy or mints. Take only the following medications with a SIP of water on the morning of surgery: __None____ DO NOT STOP ANY OF YOUR OTHER PRESCRIPTION MEDICATIONS PRIOR TO SURGERY EXCEPT THE FOLLOWING Hold all vitamins and supplements for 3 days per anesthesiologist. Medications to discontinue per physician Date to take last dose____ Please no make-up, nail estonian, hairspray, perfume, deodorant, or body powder the day of surgery.? No jewelry (including any body piercings) or valuables the day of surgery, leave them at home.? Please take a shower or bath the night before, or the morning of, surgery with an antibacterial soap.? Wear comfortable, loose fitting clothing.? - Jewelry must be removed prior to entering the operating room.? Rings and piercings that are not removed may be cut off. - The hospital will not accept responsibility for valuables.? - Please leave all valuables, including medications, at home the day of surgery. If you are going home after surgery, a licensed dinkey driver must drive you home.? - NO public transportation without another adult if you receive anesthesia. - We recommend that an adult stay with you for 24 hours following discharge. - We also recommend that you do not drive, make important decision, drink alcoholic beverages, or take any drugs that were not prescribed by your health care provider for at least 24 hours after your discharge time. Follow any additional instructions given to you from your surgeon. Telephone instructions given to __Clay__and asked if any additional questions and then verbalized understanding. Patient advised to call surgeon office or pre surgery nurse liaison [phone] if any additional questions.
--- NOTE | 2024-12-07 08:48 | SUR.PREOP ---
Report to the Outpatient Waiting Room, entrance under the green pavilion located off [facility], at time _0800_ on date _12/19/2024_. Planned Procedure Time: _1000_.? Time changes happen often and if your time is changed the preop area will call you the afternoon before. - You and your visitor will be asked to self-screen and do not enter if you have any COVID symptoms. Please call surgeon if you need to reschedule. - A mask is optional within the hospital at this time. Patients may have clear liquids (water, carbonated beverages, clear teas, apple juice) until 3 hours (0700) prior to surgery with a maximum of 20 ounces. - No food from midnight until time of surgery and no smoking, or chewing tobacco (or any form of nicotine). No chewing gum, candy or mints. Take only the following medications with a SIP of water on the morning of surgery: _NA_ DO NOT STOP ANY OF YOUR OTHER PRESCRIPTION MEDICATIONS PRIOR TO SURGERY EXCEPT THE FOLLOWING Hold all vitamins and supplements for 3 days per anesthesiologist. Medications to discontinue per physician _NA_ Date to take last dose_NA_ Please no make-up, nail maltese, hairspray, perfume, deodorant, or body powder the day of surgery.? No jewelry (including any body piercings) or valuables the day of surgery, leave them at home.? Please take a shower or bath the night before, or the morning of, surgery with an antibacterial soap.? Wear comfortable, loose fitting clothing.? Children are encouraged to wear pajamas. - Jewelry must be removed prior to entering the operating room.? Rings and piercings that are not removed may be cut off. - The hospital will not accept responsibility for valuables.? - Please leave all valuables, including medications, at home the day of surgery. If you are going home after surgery, a licensed armored car driver must drive you home.? - NO public transportation without another adult if you receive anesthesia. - We recommend that an adult stay with you for 24 hours following discharge. - We also recommend that you do not drive, make important decision, drink alcoholic beverages, or take any drugs that were not prescribed by your health care provider for at least 24 hours after your discharge time. Follow any additional instructions given to you from your surgeon. Telephone instructions given to _JULISA_and asked if any additional questions and then verbalized understanding. Patient advised to call surgeon office or pre surgery nurse liaison [phone] if any additional questions.
--- NOTE | 2024-12-07 08:57 | SUR.PREOP ---
PER PATIENT NO CHANGES IN MEDICAL HISTORY OR MEDICATION LIST SINCE PREVIOUS INTERVIEW. NEW INSTRUCTIONS GIVEN TO PATIENT BY THIS RN.
[2024-12-19] VITALS (8 sets, daily range): BP systolic 105–125; BP diastolic 68–94; PULSE 62–87; RESP 10–14; TEMP 36.4–36.7; O2SAT 100; BMI 28.3
--- OUTSIDE RECORDS SUMMARY | 2024-12-19 01:45 | XMS_ITS | Clinical Summary ---
Author Organization [facility] [employer] Address [address] [place] [address] Care Team Providers Care Sales Planning Analyst Name Role Phone Unavailable Primary Care Provider Unavailabl e Source Comments [facility] [employer],non-owned Affiliates and Associated Physician Practices is amultiple site organization consisting of ambulatory clinics and hospital sitesin [place], [place], [place] and [place]. This disclosure is being madepursuant to the Care Everywhere program and may not contain all information available regarding this patient. 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 Gender Identity Male 08/17/2021 6:25 PM CDT Sexual Orientation Straight 08/17/2021 6: 25 PM CDT Last Filed Vital Signs Vital Sign Reading Time Taken Comments Blood Pressure 123/77 05/20/2019 2:09 AM WEAVING PROFESSOR Pulse 121 05/20/2019 2:09 AM WEAVING PROFESSOR Temperature 37.3 C (99.1 F) 05/20/2019 2:09 AM WEAVING PROFESSOR Respiratory Rate 18 05/20/2019 2:09 AM WEAVING PROFESSOR Oxygen Saturation 100% 05/20/2019 2:09 AM WEAVING PROFESSOR Inhaled Oxygen Concentration - - Weight 79.4 kg (175 lb) 05/20/2019 2:09 AM WEAVING PROFESSOR Height 167.6 cm (5' 6) 05/20/2019 2:09 AM WEAVING PROFESSOR Body Mass Index 28.25 05/20/2019 2:09 AM WEAVING PROFESSOR Plan of Treatment Health Maintenance Due Date Last Done Comments LIPID TESTING 1984 HIV SCREENING 1999 HEPATITIS C SCREENING 05/24/2002 DTAP/TDAP/TD VACCINES (1 - Tdap) 2003 HEPATITIS B VACCINE (1 of 3 - 19+ 3-dose series) 2003 HPV VACCINE (1 - 3-dose SCDM series) 2011 COVID-19 VACCINE (1 - 2023-2 5 season) 2024 DEPRESSION SCREENING 05/04/2024 INFLUENZA VACCINE (#1) 2025 ZOSTER VACCINE (1 of 2) 2034 [...] age to complete this topic Insurance MEDICAID - [id number]
--- OUTSIDE RECORDS SUMMARY | 2024-12-19 01:45 | XMS_ITS | Continuity of Care Document ---
Author Organization [facility] Address [address] [place] [address] Phone Care Team Providers Care Drying Tumbler Operator Name Role Phone Rafa Cope MD [...] Diagnoses Date Provider Providers Copied on Encounter [facility], [address] [place], [place], [id number], [place] tel:[phone] [facility] No Information Anatoliy Craig. [address] [facility] [place], [id number], [place]. tel:[phone] Referring Provider: Rafa Cope, [address] [facility] [place], [place], [id number]. tel:[phone] PREV VISIT, NEW, AGE 18-39 [facility], [address] [place], [place], [id number], [place] tel:[phone] [facility] PHysical (chief complaint) Encntr for general adult medical exam w/o abnormal findings Anatoliy Craig. [address], [facility] [place], [place], [id number], [place]. tel:[phone] Referring Provider: Taylor Vargas [address], [place], [place], [id number]. tel:[phone] Family History Family Member Type Diagnosis Age At Onset Mother Problem (finding) Alive and well Brother Problem (finding) Alive and well Father Problem (finding) Alive and well Payers Payer name Insurance type Covered constitution party ID Authoriza tion(s) No Information Social History [...] MD [address] [place], [place], [id number] Ordered: Referrals: Kwesi Chaves MD Evaluate and [...]
--- NOTE | 2024-12-19 07:19 | P.HP_ITS ---
H&P: HPI History of Present Illness Date/Time: 12/19/24 07:19 Chief Complaint: incarcerated right inguinal hernia Narrative: Raffy is a 39 y/o male who presents to the office for evaluation of right inguinal hernia. Patient presented to [facility] ED on 08/26/24 with complaints of abdominal pain. CT abd/pelvis was performed showing no acute intra- abdominal/pelvic process. Small fat-containing right inguinal hernia. 2.5 cm hypodense hepatic lesion along the ligamentum teres and classic location for focal hepatic steatosis. The configuration is however somewhat masslike and would recommend further evaluation with pre and postcontrast MRI for more definitive determination. Patient reports increase right groin pain for the past few months. States the bulge is reducible. Reports nausea. BM's fluctuate between diarrhea/constipation. Reports a prior surgical history of umbilical hernia repair. Review of Systems Review of Systems: All systems reviewed & are unremarkable except as noted in HPI and below PMFSH Past Medical History Medical History GERD (gastroesophageal reflux disease) Anxiety Allergies Family History Family History Mother Patient's mother is in good health Asthma Father Patient's father is in good health Diabetes mellitus Sibling Patient's brother is in good health Social History Social History Years smoked: 15 Smoking status: Current every day smoker Tobacco type: cigarettes Second hand tobacco smoke exposure: Yes Alcohol intake: never Substance use: former Substance use type: marijuana Do You Feel Safe in your Home?: Yes Lack of Transportation: No Lack of Food: Never True Current Housing: I Have Housing Concerned About Future Housing: No Difficulty Paying Gas/Electric Bills: No Difficulty Paying for Meds: No Currently Unemployed: No Education: High School Diploma/GED Difficulty w/ Childcare or Family Care: No Living arrangements: with family Spiritual care concerns: No Meds Home Medications and Allergies Home Medications ?Medication ?Instructions ?Recorded ?Confirmed ?Type No Home Medications 10/11/24 12/07/24 History Allergies Allergy/AdvReac Type Severity Reaction Status Date / Time No Known Allergies Allergy Verified 12/07/24 08:58 Exam Const: General: cooperative, comfortable and no acute distress Resp: Auscultation: clear to auscultation bilaterally Cardio: Rate: regular rate Rhythm: regular rhythm GI: Inspection: normal to inspection and non-distended GI Palp: Yes abdominal tenderness, Yes Soft to palpation and Yes Hernia present Other: right inguinal hernia incarcerated, moderately tender to palpation Assessment and Plan Assessment and plan (1) Incarcerated right inguinal hernia: Code(s): K40.30 - Unilateral inguinal hernia, with obstruction, without gangrene, not specified as recurrent Status: Acute Assessment and Plan: set up for robotic assisted repair with mesh
--- NOTE | 2024-12-19 07:21 | WPDHPUPDATE1 ---
History and Physical Update Update Date/Time: 12/19/24 07:21 History and Physical has been reviewed, including an updated exam of the patient. There are NO changes in the patient's condition. Risks, benefits, and alternatives have been discussed and questions answered. Patient agrees to proceed with procedure.
[2024-12-19] MEDS: KETOROLAC 15 MG/ML VIAL (*BKC) IV PUSH ×2 (08:30→11:04)
[2024-12-19] MEDS: ACETAMINOPHEN 500 MG TABLET 1000 MG PO (08:30)
[2024-12-19] MEDS: LACTATED RINGERS 1,000 ML 30 ML IV CONT ×2 (08:30→11:21)
--- NOTE | 2024-12-19 09:43 | P.PNAN_ITS ---
Anes - Initial Pre Proc Eval Procedure: Operation Date: 12/19/24 10:00 Proposed Procedures p Robotic Repair Incarcerated Right Inguinal Hernia with Mesh - Harriet Stevens MD Date/Time: 12/19/24 09:43 Surgeon: Harriet Stevens MD Pre Op Diagnosis: incarcerated right inguinal hernia Patient Data Age: 39 Gender: M Height: 1.65 m Weight: 77.2 kg Last Vital Signs Temp 98.1 F 12/19/24 08:53 Pulse 77 12/19/24 08:53 BP 105/68 12/19/24 08:53 Pulse Ox 100 12/19/24 08:53 O2 Del Method Room Air 12/19/24 08:53 Allergies Allergy/AdvReac Type Severity Reaction Status Date / Time No Known Allergies Allergy Verified 12/19/24 08:52 Home Medications ?Medication ?Instructions ?Recorded ?Confirmed ?Type No Home Medications 10/11/24 12/07/24 History Laboratory Tests 12/19/24 08:27 Blood Type O Positive Antibody Screen Negative Patient hx anesthesia problems: none Family hx anesthesia problems: none Results Review: All pre-operative results and documents have been reviewed as part of the pre- operative evaluation. [facility] Past Medical History Medical History GERD (gastroesophageal reflux disease) Anxiety Allergies Family History Family History Mother Patient's mother is in good health Asthma Father Patient's father is in good health Diabetes mellitus Sibling Patient's brother is in good health Social History Social History Years smoked: 15 Smoking status: Current every day smoker Tobacco type: cigarettes Second hand tobacco smoke exposure: Yes Alcohol intake: never Substance use: former Substance use type: marijuana Do You Feel Safe in your Home?: Yes Lack of Transportation: No Lack of Food: Never True Current Housing: I Have Housing Concerned About Future Housing: No Difficulty Paying Gas/Electric Bills: No Difficulty Paying for Meds: No Currently Unemployed: No Education: High School Diploma/GED Difficulty w/ Childcare or Family Care: No Living arrangements: with family Spiritual care concerns: No Anes - Eval Final PreProcedure Day of Procedure 12/19/24 09:43 Patient weight: normal Heart: regular rate and rhythm Lungs: clear to auscultation Airway: Mallampati scale class II Neurological: alert and oriented Last oral intake: >/= 8 hours ASA classification: III Emergent: no Anesthetic plan: proceed Anesthesia type and monitoring: general ETT and standard monitoring Results Review: All pre-operative results and documents have been reviewed as part of the pre- operative evaluation. Informed Consent: The patient's anesthetic plan and its attendant risks and benefits were discussed with the patient/family/POA. Questions were solicited and answers provided to the satisfaction of the patient/family/POA.
[2024-12-19] MEDS: ceFAZolin 2 GM in SODIUM CHLORIDE 0.9% IV 50 ML 100 ML IVPB (09:50)
[2024-12-19] MEDS: BUPIVACAINE/EPINEPHRINE 0.5% 30 ML VIAL INFILTRATE (10:21)
--- NOTE | 2024-12-19 11:24 | W.PM.PROC2 ---
Procedure Note - Detailed Date of Procedure 12/19/24 Pre-op Diagnosis incarcerated right inguinal hernia Post-op Diagnosis Same Procedure Performed robotic assisted incarcerated right inguinal hernia repair with mesh Surgeon Harriet Stevens MD Anesthesia General and Local Indications 39-year-old male presenting with incarcerated right inguinal hernia confirmed by imaging. Findings Incarcerated right inguinal hernia, incarcerated omentum and preperitoneal fat all viable Description of Procedure Patient was brought into the operating room and placed in the supine position. After adequate induction of general anesthesia, the patient was prepped and draped in normal sterile fashion. A time-out was then done to verify the patient's identity, as well as the procedure being performed. Began by making a 8 mm incision in the supraumbilical region, a Veress needle was then placed into the peritoneal cavity. CO2 gas was then insufflated and after adequate pneumoperitoneum was achieved, the Veress needle was removed. I then placed an 8 mm trocar through this incision. I then placed the endoscope through this trocar site and under direct visualization placed 2 further 8 mm ports in the right and left mid abdomen. The [employer] robot was then docked to the 3 trocar sites. I then scrubbed out and went to the robotic console. Upon examining the pelvis, it was noted that the patient had a large incarcerated right inguinal hernia. I first reduced the contents of the incarcerated hernia, which was noted to be largely omentum and fat. This tissue was examined and noted to be viable. The left side was examined and no hernia defect was noted. I began by making a preperitoneal flap approximately 6 cm superior to the defect. This flap was carried medially past the umbilical ligaments in laterally to the transversalis. It then began dissection of my medial compartment taking this down to the pubic tubercle. I then began the lateral dissection taking this down to the transversalis fascia. Once these compartments were achieved, I began dissection around the cord structures. A large indirect hernia was noted at this point. Using careful dissection, was able to reduce indirect hernia sac off the cord structures. There was also a large lipoma of the cord that was reduced. Once this was adequately done, I went ahead and placed a large piece of 3D Max mesh into the abdominal cavity. The mesh was carefully positioned, centering the center of the mesh over the indirect defect. Once this was done, was very satisfied with our repair. Using 3-0 Vicryl sutures, I tacked the mesh medially to Barry's ligament. Two lateral sutures were placed from the mesh to the transversalis fascia. I then closed the peritoneal flap with a running 2.0 V Lock suture. The abdomen was then desufflated, and all ports were removed. All incisions were then closed with the 4.0 monocryl suture. Dermabond was placed on each wound. The patient tolerated the procedure well, was extubated in the operating room postoperatively, and will now be transferred to the recovery room in stable condition. Implants large 3DMax mesh Estimated Blood Loss 10 Drains No Packing No Pathology None sent Complications No immediate complications Condition Stable Disposition PACU [facility] Billing Surgery - Charge Forward: Surgery Billing
[2024-12-19] MEDS: fentaNYL CITRATE INJ (*CRX) 100 MCG/2 ML VIAL 25 MCG IV PUSH ×4 (11:42→11:56)
[2024-12-19] MEDS: oxyCODONE HCL (*CRX) 5 MG TAB IR PO (12:32)
== END 2024-12-19 13:17 | disposition home or self-care (01) ==
PROVIDERS: Visit Provider Surgery
PROC: 8E0Y4CZ Robotic Assisted Procedure of Lower Extremity, Percutaneous Endoscopic Approach (ICD-10-PCS; CPT 49650; principal; 2024-12-19 10:00)
DX: K40.30 Unilateral inguinal hernia, with obstruction, without gangrene, not specified as recurrent (principal); K21.9 Gastro-esophageal reflux disease without esophagitis; F41.9 Anxiety disorder, unspecified; F17.210 Nicotine dependence, cigarettes, uncomplicated
CPT/HCPCS: 49650; S2900; 36415; 82948; 86850; 86900; 86901; J0690; A9270; C1781; J1100; J1885; J2003; J2250; J2405; J2704; J3010; J7120